=== PATIENT | female | born 1985 | race Caucasian/White ===

== ENCOUNTER 2024-04-11 23:19 | Emergency (ER) | payer SELFPAY ==
[~2024-04-11] VITALS: Ht 157.5 cm; Wt 81.6 kg
[2024-04-11 23:44] VITALS: BP 129/97; PULSE 74; RESP 16; TEMP 97.4; O2SAT 99
[2024-04-12] MEDS: KETOROLAC 30 MG/ML VIAL IM ONE (00:45)
[2024-04-12] MEDS ORDERED: NAPR-337 PO (01:58)
[2024-04-12] MEDS ORDERED: LID5T TP (01:58)
[2024-04-12 02:04] VITALS: BP 128/78; PULSE 72; RESP 16; TEMP 97.4; O2SAT 99
[2024-04-12] MEDS ORDERED: PRED50TA2 PO (12:12)
[2024-04-12] MEDS ORDERED: CETI10SG1 PO (12:12)
== END 2024-04-12 02:04 | disposition home or self-care (01) ==
LOC: MED 23:19
DX: S46.911A Strain of unspecified muscle, fascia and tendon at shoulder and upper arm level, right arm, initial encounter (principal); G43.909 Migraine, unspecified, not intractable, without status migrainosus; R03.0 Elevated blood-pressure reading, without diagnosis of hypertension; Z79.1 Long term (current) use of non-steroidal anti-inflammatories (NSAID); Z79.899 Other long term (current) drug therapy; X58.XXXA Exposure to other specified factors, initial encounter; Y93.89 Activity, other specified; Y92.89 Other specified places as the place of occurrence of the external cause; Y99.8 Other external cause status
CPT/HCPCS: 71045; 73030; 96372; 99284; J1885; Q0092; 99283

== ENCOUNTER 2024-04-12 09:34 | Emergency (ER) | payer SELFPAY ==
[~2024-04-12] VITALS: Ht 154.9 cm; Wt 79.0 kg
[~2024-04-12 09:34] MED LIST: LID5T TP; NAPR-337 PO
[2024-04-12 09:50] VITALS: BP 114/75; PULSE 70; RESP 19; TEMP 97.8; O2SAT 97
[2024-04-12] MEDS ORDERED: EPINEPHrine 1 MG/ML AMP ONE (10:19)
[2024-04-12] MEDS: predniSONE 20 MG TAB PO ONE (10:22)
[2024-04-12] MEDS: diphenhydrAMINE 50 MG/ML VIAL IM ONE (10:25)
[2024-04-12] MEDS: EPINEPHrine 1 MG/ML AMP IM ONE (10:31)
[2024-04-12] MEDS ORDERED: ONDANSETRON 4 MG TAB ONE (10:40)
[2024-04-12] MEDS: ONDANSETRON 4 MG ODT PO ONE (10:42)
[2024-04-12] MEDS ORDERED: PRED50TA2 PO (12:12)
[2024-04-12] MEDS ORDERED: CETI10SG1 PO (12:12)
[2024-04-12 12:50] VITALS: BP 110/60; PULSE 68; RESP 18; TEMP 36.55848; O2SAT 98
== END 2024-04-12 12:50 | disposition home or self-care (01) ==
LOC: MED 09:34
DX: T78.3XXA Angioneurotic edema, initial encounter (principal); Z79.899 Other long term (current) drug therapy; Z79.1 Long term (current) use of non-steroidal anti-inflammatories (NSAID)
CPT/HCPCS: 96372; 99285; J0171; J1200; J7512; Q0162; 99284